=== PATIENT | female | born 1945 | race Caucasian/White ===

== ENCOUNTER 2020-06-17 14:40 | Emergency (ER) | payer MEDICARE, SELFPAY ==
--- NOTE | ~2020-06-17 | CT_ITS ---
EXAMINATION: CT cervical spine wo con DATE: 06/17/2020 16:36 INDICATION: Neck injury. TECHNIQUE: Computed tomography (CT) of the cervical spine was performed without intravenous contrast. Automated exposure control and iterative reconstruction technique were employed. The dose-length pro duct was 605.33 mGy-cm. COMPARISON: None FINDINGS: Bone alignment is normal. Vertebral body heights are normal. There is moderately decreased disc height at C5-C6 and severely decreased disc height at C6-C7. The following disc levels are speci fically discussed: C2-C3: There is mild left uncovertebral joint osteoarthritis. There is severe bilateral facet joint o steoarthritis. There is mild left neural foraminal stenosis. There is no central canal stenosis. C3-C4: There is no uncovertebral joint osteoarthritis. There is mild right and severe left facet join t osteoarthritis. There is moderate left neural foraminal stenosis. There is no central canal stenosi s. C4-C5: There is mild right uncovertebral joint osteoarthritis. There is severe right and moderate lef t facet joint osteoarthritis. There is moderate right and mild left neural foraminal stenosis. There is mild central canal stenosis. C5-C6: There is mild bilateral uncovertebral joint osteoarthritis. There is severe bilateral facet natalio int osteoarthritis. There is mild bilateral neural foraminal stenosis. There is mild central canal st enosis. C6-C7: There is severe right and mild left uncovertebral joint osteoarthritis. There is severe bilate ral facet joint osteoarthritis. There is mild bilateral neural foraminal stenosis. There is mild cent ral canal stenosis. C7-T1: There is no uncovertebral joint osteoarthritis. There is severe right and moderate left facet joint osteoarthritis. There is mild right neural foraminal stenosis. There is no central canal stenos is. IMPRESSION: 1. No fracture. 2. Severe cervical spondylosis. Reviewed, dictated and finalized at location A.
--- NOTE | ~2020-06-17 | CT_ITS ---
EXAMINATION: CT brain wo con DATE: 06/17/2020 16:35 INDICATION: Headache. TECHNIQUE: Computed tomography (CT) of the head was performed without intravenous contrast. The mA wa s adjusted according to patient size. Iterative reconstruction technique was employed. The dose-lengt h product was 605.33 mGy-cm. COMPARISON: None FINDINGS: There is an old lacunar infarct in left caudate nucleus. There are scattered areas of low a ttenuation in the cerebral white matter. There is no intracranial hemorrhage, acute infarction, or ab normal intracranial mass lesion. The ventricles are normal in size. Cavum septum pellucidum and verga e are noted. There is mild mucosal thickening in the paranasal sinuses. There are likely changes of l eft ocular lens replacement surgery. The mastoid air cells are normal. IMPRESSION: 1. 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 2. Mild nonspecific cerebral white matter disease, which likely represents chronic small vessel ische chaim disease. Reviewed, dictated and finalized at location A. IMPRESSION: 1. 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 2. 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
[2020-06-17 15:23] VITALS: BP 145/70; PULSE 54; RESP 18; TEMP 36.4; O2SAT 97
[2020-06-17] MEDS: KETOROLAC (*BKC) 60 MG/2 ML VIAL 10 MG IM (17:31)
[2020-06-17 17:54] VITALS: BP 136/69; PULSE 53; RESP 18; O2SAT 99
[2020-06-17 18:01] VITALS: TEMP 36.4
--- NOTE | 2020-06-17 18:03 | ED.GENADULT ---
HPI - General Adult General Chief complaint: Headache Stated complaint: Headache s/p fall Time Seen by Provider: 06/17/20 17:06 Source: patient and RN notes reviewed Mode of arrival: ambulatory Limitations: no limitations History of Present Illness HPI narrative: Patient is a 75-year-old female who presents with left-sided headache that has been present off and on since she struck her head 2 weeks ago when she tripped patient has seen primary care for this and neurology and has been taking prescribed medication with improvement presents today per recommendation of primary care on arrival patient notes left-sided headache that is an aching pain she has not taken anything for pain today for this denies new injury or trauma or other complaints and presents with normal gait no distress patient is followed by Dr. Caba [employer] Home Medications Medication Instructions Recorded Confirmed famotidine 06/17/20 hydrochlorothiazide 06/17/20 lisinopril 06/17/20 methocarbamol mg 06/17/20 pravastatin 06/17/20 primidone 06/17/20 topiramate 06/17/20 Allergies Allergy/AdvReac Type Severity Reaction Status Date / Time tramadol AdvReac Severe NAUSEATED, Verified 06/17/20 17:06 DIZZY, CAUSED HER TO PASS OUT HYDROCODONE BIT AdvReac Mild DIZZY, Uncoded 06/17/20 17:06 LIKE I WAS GOING TO PASS OUT , SICK Review of Systems Review of Systems: All systems reviewed & are unremarkable except as noted in HPI and below PMFSH Past Medical History Medical History (Updated 06/17/20 @ 18:06 by Ambrose Larson PA-C) Hypertension Migraine Social History Social History Smoking status: Never smoker Smoking end date: 02/11/89 Alcohol intake: never Exam Narrative: Exam Narrative: GENERAL: Well-appearing, well-nourished, and in no acute distress. HEAD: Normocephalic, atraumatic. EYES: PERRLA and EOMI. ENT: Nares clear, no rhinorrhea or epistaxis. Mucous membranes moist. CHEST: Clear to auscultation. No respiratory distress. No wheezes rales or rhonchi HEART: Regular rate and rhythm. No murmur heard. EXTREMITIES: Normal range of motion. No edema. No C-spine tenderness to palpation SKIN: Warm, dry, no rash. NEURO: No focal deficits. Alert and oriented x3. Cranial nerves II through XII grossly intact. Normal speech and gait PSYCH: Normal mood and affect. Course Course Emergency Course: Patient in the room had resolution with Toradol will be discharged home with continued evaluation by primary care patient agrees with this plan Vital Signs Vital signs: Vital Signs Temperature 97.6 F 06/17/20 15:23 Pulse Rate 54 L 06/17/20 15:23 Respiratory Rate 18 06/17/20 15:23 Blood Pressure 145/70 H 06/17/20 15:23 Pulse Oximetry 97 06/17/20 15:23 Temperature 97.6 F 06/17/20 15:23 Pulse Rate 53 L 06/17/20 17:54 Respiratory Rate 18 06/17/20 17:54 Blood Pressure 136/69 06/17/20 17:54 Pulse Oximetry 99 06/17/20 17:54 Medical Decision Making MDM Narrative Medical decision making narrative: Patients headache was not sudden or maximal in onset. There are o focal neurological deficits on exam. Subarachnoid hemorrhage is felt to be unlikey at this time. There is no history of fever, and neck is supple without meningismus, making meningitis unlikely. No traumatic history or signs of trauma on exam. No risk factors for CVA, risk factors reviewed. NO ocular signs on exam and in history to suggest acute glaucoma. Patients headache is felt to be a reasonable candidate for outpatient evaluation Vital Signs Vital Signs: Vital Signs Temperature 97.6 F 06/17/20 15:23 Pulse Rate 54 L 06/17/20 15:23 Respiratory Rate 18 06/17/20 15:23 Blood Pressure 145/70 H 06/17/20 15:23 Pulse Oximetry 97 06/17/20 15:23 Temperature 97.6 F 06/17/20 15:23 Pulse Rate 53 L 06/17/20 17:54 Respir
[2020-06-17 18:34] VITALS: BP 128/82; PULSE 57; RESP 18; O2SAT 98
== END 2020-06-17 18:35 | disposition home or self-care (01) ==
PROVIDERS: Emergency Provider Emergency Medicine; PCP Family Medicine
DX: R51.9 Headache, unspecified (principal); I10 Essential (primary) hypertension; M47.812 Spondylosis without myelopathy or radiculopathy, cervical region; R90.82 White matter disease, unspecified
CPT/HCPCS: 70450; 72125; 96372; 99284; J1885